=== PATIENT | female | born 1970 | race African-American/Black ===

== ENCOUNTER 2024-10-09 21:10 | Inpatient (IN) | payer OTHER ==
[~2024-10-09] VITALS: Ht 162.6 cm; Wt 69.9 kg
[2024-10-09 21:24] VITALS: O2SAT 100
[2024-10-09] MEDS: SODIUM CHLORIDE 0.9% 1,000 ML IV ONE (22:30)
[2024-10-09 23:02] LABS: BASOPHILS % 0.2 % (0.0-2.0); EOSINOPHILS % 0.1 % (0.0-5.0); HEMATOCRIT. 24.6 % (36.0-48.0); HEMOGLOBIN. 7.7 g/dL (12.0-16.0); LYMPHOCYTES % 8.9 % (20.0-50.0); MEAN CORPUSCULAR HEMOGLOBIN 28.7 pg (28.0-32.0); MEAN CORPUSCULAR HGB CONC 31.5 g/dL (31.0-37.0); MEAN CORPUSCULAR VOLUME 91.1 fL (81.0-99.0); MEAN PLATELET VOLUME 7.7 fl (7.4-10.4); NEUTROPHILS % 87.8 % (40.0-76.0); PLATELET 233 x1000/uL (130-400); RED CELL DISTRIBUTION WIDTH 18.7 % (11.6-14.6); WHITE BLOOD COUNT 12.1 x1000/uL (4.5-11.0)
[2024-10-09 23:14] LABS: CHLORIDE 116 mEq/L (98-107); POTASSIUM 3.6 mEq/L (3.5-5.1); SODIUM 145 mEq/L (136-145)
[2024-10-09 23:15] LABS: CARBON DIOXIDE 19 mEq/L (21-32)
[2024-10-09 23:18] LABS: PROTHROMBIN TIME 11.2 sec (9.6-11.0)
[2024-10-09 23:20] LABS: GLUCOSE 147 mg/dL (70-105); UREA NITROGEN BLOOD 18 mg/dL (9-23)
[2024-10-09 23:22] LABS: ALANINE AMINOTRANSFERASE 33 IU/L (10-49); ALBUMIN 3.1 g/dL (3.2-4.8); ASPARTATE AMINOTRANSFERASE 24 IU/L (<34); BILIRUBIN DIRECT < 0.1 mg/dL (<=3.0); BILIRUBIN TOTAL 0.3 mg/dL (0.1-1.0); PROTEIN TOTAL 5.3 g/dL (6.0-8.3)
[2024-10-09 23:31] LABS: TROPONIN I HIGH SENSITIVITY < 4 ng/L (3.0-34)
[2024-10-10] MEDS ORDERED: DIPHENHYDRAMINE 50MG/ML VIAL IV ONE (02:00)
[2024-10-10 03:27] LABS: HEMATOCRIT 23.6 % (36.0-48.0); HEMOGLOBIN 7.5 g/dL (12.0-16.0); MEAN CORPUSCULAR VOLUME 90.6 fL (81.0-99.0); PLATELET 212 x1000/uL (130-400); WHITE BLOOD COUNT 8.5 x1000/uL (4.5-11.0)
[2024-10-10] MEDS: DIPHENHYDRAMINE 50MG/ML VIAL IV NR (03:41)
[2024-10-10] MEDS ORDERED: DEXTROSE 50% WATER 50ML SYRINGE IV PRN (04:15)
[2024-10-10] MEDS ORDERED: DOCUSATE SODIUM 100MG CAPSULE PO PRN (04:15)
[2024-10-10] MEDS ORDERED: ACETAMINOPHEN 325MG TABLET PO PRN (04:15)
[2024-10-10] MEDS ORDERED: ONDANSETRON HCL 4MG/2ML INJ IV PRN (04:15)
[2024-10-10] MEDS ORDERED: GUAIFENESIN 200MG/10ML SUGAR FREE UDC PO PRN (04:15)
[2024-10-10] MEDS ORDERED: CLONIDINE 0.1MG TABLET PO PRN (04:15)
[2024-10-10] MEDS ORDERED: IPRATROPIUM/ALBUTEROL 0.5-3(2.5)MG/3ML NEB HHN PRN (04:15)
[2024-10-10] MEDS ORDERED: IOHEXOL-350 100 ML BOTTLE ONE (04:22)
[2024-10-10] MEDS: DEXT 5%/0.45% NACL 1000ML 1,000 ML IV SCH (06:37)
[2024-10-10 08:00] VITALS: BP 112/77; PULSE 79; RESP 20; O2SAT 96
[2024-10-10] MEDS ORDERED: CEFTRIAXONE 1GM/50ML 50 ML IV SCH (08:00)
[2024-10-10] MEDS: INSULIN LISPRO 100 UNITS/ML SUBCUT SCH (08:00)
[2024-10-10] MEDS: BLOOD SUGAR DIAGNOSTIC STRIP TEST SCH (08:02)
[2024-10-10 08:20] VITALS: BP 112/77; PULSE 76; RESP 18; TEMP 36.9
[2024-10-10] MEDS: PANTOPRAZOLE SODIUM 40 MG/VIAL IV SCH (08:50)
[2024-10-10] MEDS: METRONIDAZOLE 500MG TABLET PO SCH (08:55)
[2024-10-10] MEDS ORDERED: PANTOPRAZOLE SODIUM 40 MG/VIAL IV SCH (09:00)
[2024-10-10 10:00] VITALS: BP 106/70; PULSE 80; RESP 18; TEMP 36.7; O2SAT 98
[2024-10-10] MEDS: LEVOFLOXACIN 750MG PREMIX 150 ML IV SCH (10:33)
[2024-10-10 11:11] LABS: HEMATOCRIT 31.9 % (36.0-48.0); HEMOGLOBIN 10.3 g/dL (12.0-16.0)
[2024-10-10 11:26] LABS: IRON 106 ug/dL (50-170)
[2024-10-10 11:29] LABS: TOTAL IRON BINDING CAPACITY 258 ug/dl (250-425)
[2024-10-10 12:00] VITALS: BP 105/64; PULSE 66; RESP 12; O2SAT 99
[2024-10-10 12:03] LABS: CREATINE KINASE 58 IU/L (34-145)
[2024-10-10 14:00] VITALS: BP 104/71; PULSE 74; RESP 17; TEMP 36.9; O2SAT 95
[2024-10-10 15:55] LABS: HEMATOCRIT 29.1 % (36.0-48.0); HEMOGLOBIN 9.5 g/dL (12.0-16.0)
== END 2024-10-10 20:00 | disposition short-term general hospital (02) | DRG 379 ==
LOC: ER 21:10 → 5EST 10-10 02:11
PROVIDERS: ADMIT Internal Medicine; ATTEND Internal Medicine
PROC: 30233N1 Transfusion of Nonautologous Red Blood Cells into Peripheral Vein, Percutaneous Approach (ICD-10-PCS; principal; 2024-10-10)
DX: K57.31 Diverticulosis of large intestine without perforation or abscess with bleeding (principal); E11.9 Type 2 diabetes mellitus without complications; D64.9 Anemia, unspecified; E78.5 Hyperlipidemia, unspecified; K59.00 Constipation, unspecified; E04.2 Nontoxic multinodular goiter; G47.00 Insomnia, unspecified; K21.9 Gastro-esophageal reflux disease without esophagitis; K58.9 Irritable bowel syndrome, unspecified; Z87.820 Personal history of traumatic brain injury; I70.90 Unspecified atherosclerosis; Z80.3 Family history of malignant neoplasm of breast; Z82.3 Family history of stroke
CPT/HCPCS: 36415; 71045; 74174; 80048; 80076; 82550; 82962; 83036; 83540; 83550; 84484; 85014; 85018; 85025; 85027; 86850; 86900; 86920; 93005; 99291; J1200; J1956; J2405; J2470; J7030; P9016; Q9967